=== PATIENT | female | born 1990 | race Caucasian/White ===

== ENCOUNTER 2021-08-18 17:43 | Emergency (ER) | payer MEDICAID, OTHER ==
[~2021-08-18] VITALS: Ht 165.1 cm; Wt 108.9 kg
[2021-08-18 17:46] VITALS: BP 128/88
== END 2021-08-18 23:43 | disposition left against medical advice (07) ==
LOC: ER 17:43 → EDBD 17:43 → ER 23:43
DX: M25.512 Pain in left shoulder (principal); R07.89 Other chest pain; Z53.21 Procedure and treatment not carried out due to patient leaving prior to being seen by health care provider; V89.2XXA Person injured in unspecified motor-vehicle accident, traffic, initial encounter; Y93.89 Activity, other specified; Y92.89 Other specified places as the place of occurrence of the external cause; Y99.8 Other external cause status